=== PATIENT | born 1970 ===

== ENCOUNTER 2020-09-19 12:34 | Outpatient (CLI) | payer SELFPAY ==
[2020-09-19 13:51] LABS: SARS Covid-2 Antigen Negative (Negative)
[2020-09-20 14:11] LABS: Coronavirus Test Green County Not Detected
== END 2020-09-19 12:35 | disposition home or self-care (01) ==
LOC: LAB 12:39
PROVIDERS: Visit Provider Family Medicine
DX: Z20.822 Contact with and (suspected) exposure to COVID-19 (principal)
CPT/HCPCS: 87426; 87635